=== PATIENT | female | born 1995 | race Caucasian/White ===

== ENCOUNTER 2019-07-30 10:23 | Emergency (ER) | payer OTHER ==
--- NOTE | 2019-07-30 10:44 | ER Document Report ---
HPI - HPI Time Seen by Provider: 07/30/19 10:32 Pain Level: 2 Context: Healthy 24-year-old female presents the emergency department for left calf pain after getting kicked in the edition 2 days ago. She said a child kicked her in the patella and kind of "bounced around". She was seen her primary yesterday and had a negative x-ray. She is concerned but she did a global search and when the symptoms that came up was a DVT. Denies fevers, denies unilateral leg swel ling, denies redness or warmth to the leg, denies pain out of proportion to passive movement. Shortness of breath. - REPRODUCTIVE Reproductive: DENIES: : Past Medical History - Social History Smoking Status: Never Smoker Chew tobacco use (# tins/day): No Frequency of alcohol use: Occasional Drug Abuse: None Family History: None Patient has suicidal ideation: No Patient has homicidal ideation: No Vertical Provider Document - CONSTITUTIONAL Notes: PHYSICAL EXAMINATION: Reviewed vital signs and charting by RN GENERAL: Alert, interacts well. No acute distress. HEAD: Normocephalic, atraumatic. EYES: Pupils equal and round. Extraocular movements intact. ENT: Oral mucosa moist, tongue midline. NECK: Full range of motion. Trachea midline. LUNGS: Clear to auscultation bilaterally, no wheezes, rales, or rhonchi. No respiratory distress. HEART: Regular rate and rhythm. No murmur ABDOMEN: soft, non-tender. No distention. Bowel sounds present EXTREMITIES: Moves all 4 extremities spontaneously. No edema, No cyanosis. Mild tenderness to palpation over the soleus muscle left leg, no swelling, no redness, no warmth PSYCH: Normal affect, normal mood. SKIN: Warm, dry, normal turgor. No rashes or lesions noted. - INFECTION CONTROL TRAVEL OUTSIDE OF THE [place] IN LAST 30 DAYS: No Course - Re-evaluation Re-evalutation: 07/30/19 10:43 Patient presents well-appearing in no acute distress, no swelling to the calf, no tenderness along the medial calf, Wells score for DVT 0. I explained all this to patient and she is stable for discharge. Discharge - Discharge Clinical Impression: Pain of left calf Condition: Good Disposition: HOME, SELF-CARE Additional Instructions: You were seen in the emergency department for left calf pain after an injury 2 days ago. Your physical exam was very reassuring and your very low risk for a DVT based on Wells criteria for DVT. Things to monitor for our swelling of the calf and leg, redness and warmth to that leg with swelling, severe pain out of proportion to passive or active movement of the leg, fevers, shortness of breath. If you start developing any of these symptoms please return to the emergency department as we will need to perform a Doppler study of your leg to rule out DVT.
== END 2019-07-30 10:50 | disposition home or self-care (01) ==
LOC: ER 10:23
DX: M79.605 Pain in left leg (principal); W22.8XXA Striking against or struck by other objects, initial encounter
CPT/HCPCS: 99283